=== PATIENT | female | born 1950 | race Caucasian/White ===

== ENCOUNTER 2017-06-27 03:19 | Emergency (ER) | payer MEDICARE ==
[~2017-06-27] VITALS: Ht 162.6 cm; Wt 79.5 kg
[2017-06-27] MEDS ORDERED: LIPITOR 10MG10 MG PO (03:36)
[2017-06-27] MEDS ORDERED: MICROZIDE12.5 MG PO (03:36)
[2017-06-27] MEDS ORDERED: PRINIVIL40 MG PO (03:36)
[2017-06-27] MEDS ORDERED: ASPIRIN 81M81 MG/TA2 PO (03:37)
[2017-06-27 04:18] VITALS: TEMP 98.5
[2017-06-27 08:50] VITALS: BP 138/80; PULSE 86
== END 2017-06-27 08:03 | disposition home or self-care (01) ==
LOC: COL.ER 03:19
DX: T18.128A Food in esophagus causing other injury, initial encounter (principal); E78.5 Hyperlipidemia, unspecified; I10 Essential (primary) hypertension; Z79.82 Long term (current) use of aspirin
CPT/HCPCS: J1610; J2060; J2250; J3010; J7030